=== PATIENT | female | born 1985 | race Hispanic/Latino ===

== ENCOUNTER 2018-08-27 09:14 | Outpatient (CLI) | payer OTHER ==
--- NOTE | 2018-08-27 11:33 | Cat Scan Report ---
CT abdomen wo con INDICATION / CLINICAL INFORMATION: ABDOMINAL PAIN. Periumbilical pain for 6 months. TECHNIQUE: All CT scans at this location are performed using CT dose reduction for ALARA by means of automated e xposure control. COMPARISON: None available. FINDINGS: There are several faint areas of increased increased density scattered throughout the medullary porti on of the left kidney, more prominent in the lower pole which may represent tiny nonobstructive calcu li. The liver, spleen, gallbladder, bile ducts, pancreas, adrenal glands, right kidney and bowel demo nstrate no significant abnormality. There is mild nonspecific soft tissue thickening in the right periumbilical region, best seen on axia l images 105 through 107 of series #3. I do not identify a definite hernia. No adenopathy is seen. Th e lung bases are clear. There is slight thoracolumbar scoliosis. The pelvis was not scanned because i t was not ordered. IMPRESSION: 1. Mild nonspecific soft tissue thickening in the right periumbilical hernia without a definite periu mbilical hernia. 2. Possible minimal nonobstructive left nephrolithiasis. Signer Name: David Yun MD Signed: 08/27/2018 11:29 AM Workstation Name: [id number]
== END 2018-08-27 09:15 | disposition home or self-care (01) ==
LOC: CT 09:14
PROVIDERS: ATTEND Surgery
DX: K42.9 Umbilical hernia without obstruction or gangrene (principal)
CPT/HCPCS: 74150